=== PATIENT | female | born 1985 | race Caucasian/White ===

== ENCOUNTER 2019-10-08 06:00 | Inpatient (IN) | payer OTHER ==
[~2019-10-08 06:00] MED LIST: CITRIC ACID/SODIUM CITRATE 30 ML UNIT-DOSE CUP PO ONE; ELECTROLYTE-148 SOLN 500 ML IV ONE
[2019-10-08] MEDS ORDERED: ELECTROLYTE-148 SOLN 1,000 ML IV SCH (06:30)
[2019-10-08 06:43] VITALS: BMI 37.9
[2019-10-08] MEDS ORDERED: WITCH HAZEL 50% (TUCKS) 40 PAD/JAR PAD TP PRN (07:45)
[2019-10-08] MEDS ORDERED: METHYLERGONOVINE MALEATE 0.2 MG/1 ML AMP IM PRN (07:45)
--- NOTE | 2019-10-08 07:50 | HP ---
Past Medical History - Primary Care Physician PCP:: Sudha Godfrey - Admission History Source: Patient Limitations to Obtaining History: No Limitations - Past Medical History ...: 2 ...Para: 1 ...Term: 1 ...: 0 ...Spon : 0 ...Induced : 0 ...Multiple Gestation: 0 ...LMP: 02/01/19 ...EDC by Sono: 10/13/19 - Past Surgical History Past Surgical History: Yes: Hx Myomectomy: No Hx Transabdominal Cerclage: No - Smoking History Smoking history: Never smoked Have you smoked in the past 12 months: No - Alcohol/Substance Use Hx Alcohol Use: No History of Substance Use: reports: None - Social History Usual Living Arrangement: Yes: With Spouse Home Medications - Allergies Allergies/Adverse Reactions: Allergies Allergy/AdvReac Type Severity Reaction Status Date / Time No Known Allergies Allergy Verified 10/08/19 06:55 - Home Medications Home Medications: Ambulatory Orders Vitamins (Sjr) - 1 tab PO DAILY 10/08/19 Review of Systems - Review of Systems Constitutional: reports: No Symptoms Eyes: reports: No Symptoms HENT: reports: No Symptoms Neck: reports: No Symptoms Cardiovascular: reports: No Symptoms Respiratory: reports: No Symptoms Gastrointestinal: reports: No Symptoms Genitourinary: reports: No Symptoms Breasts: reports: No Symptoms Reported Musculoskeletal: reports: No Symptoms Integumentary: reports: No Symptoms Neurological: reports: No Symptoms Endocrine: reports: No Symptoms Hematology/Lymphatic: reports: No Symptoms Psychiatric: reports: No Symptoms Physical Exam - Maternity Vital Signs: Vital Signs Temperature 98.6 F 10/08/19 06:00 Pulse Rate 74 10/08/19 06:00 Respiratory Rate 20 10/08/19 06:00 Blood Pressure 117/73 10/08/19 06:00 O2 Sat by Pulse Oximetry (%) Constitutional: Yes: Well Nourished, No Distress, Obese - Abdominal Exam/OB Number of Fetuses: Single Presentation: Vertex Contractions: No Monitor Mode: External Category: I - Vaginal Exam/OB Vaginal Bleediing: No Speculum Exam: No Amniotic Membrane Status: Intact - Physical Exam Musculoskeletal: Yes: WNL Extremities: Yes: WNL Hemorrhage Risk Assessment - Risk Factors Risk Score: 1 Risk Level: Medium Risk Problem List - Problems (1) Previous delivery affecting , antepartum Code(s): O34.219 - MATERNAL CARE FOR UNSP TYPE SCAR FROM PREVIOUS DEL (2) 39 weeks gestation of Code(s): Z3A.39 - 39 WEEKS GESTATION OF (3) Obesity affecting in third trimester Code(s): O99.213 - OBESITY COMPLICATING , THIRD TRIMESTER Assessment/Plan previous section 39 week Cat1 obesity Plan reepat cearean section
[2019-10-08] MEDS ORDERED: ePHEDrine SULFATE 50 MG/1 ML AMPULE ONE (08:08)
[2019-10-08] MEDS ORDERED: morphine SULFATE/PF 0.5 MG/ML (2cc Syringe - QUVA) ONE (08:08)
[2019-10-08] MEDS ORDERED: ceFAZolin SODIUM 1 GM VIAL ONE (08:26)
[2019-10-08] MEDS ORDERED: ONDANSETRON 4 MG/2 ML VIAL IVPUSH PRN (09:39)
[2019-10-08] MEDS ORDERED: OXYTOCIN 20 UNITS in 0.9% NS 20 UNIT/1,000 ML INFUS.BAG IV ONE (10:33)
[2019-10-08] MEDS: OXYTOCIN 20 UNITS in 0.9% NS 20 UNIT/1,000 ML INFUS.BAG IV SCH (10:39)
--- NOTE | 2019-10-08 11:34 | OP ---
Operative Note - Note: Operative Date: 10/08/19 Pre-Operative Diagnosis: Previous section. obesity. IUP at 39 weeks Operation: Repeat Low transverse Section. Lysis of adhesions Findings: Live male Nuchal cord x 2 Post-Operative Diagnosis: Same as Pre-op Surgeon: Sudha Godfrey Underground Supervisor: Luis Hill Anesthesia: Spinal Estimated Blood Loss (mls): 600 Operative Report Dictated: Yes
[2019-10-08] MEDS: IBUPROFEN 800 MG/8 ML IJ IVPB PRN ×2 (11:56→20:53)
--- NOTE | 2019-10-08 14:09 | OP ---
DATE OF OPERATION: 10/08/2019 PREOPERATIVE DIAGNOSIS: Previous section, obesity in the 3rd trimester, and intrauterine at 39 weeks. OPERATION: Repeat low transverse section and lysis of adhesions. POSTOPERATIVE DIAGNOSIS: Previous section, obesity in the 3rd trimester, and intrauterine at 39 weeks, live male infant. Nuchal cord x2 as well as numerous omental and abdominal adhesions. SURGEON: Guanakito Godfrey MD RETURN CHECKER: GEORGIA Bowles. unavailable. ANESTHESIA: Spinal. DESCRIPTION OF PROCEDURE: Patient was taken to the operating room, placed in a supine position, prepped and draped in usual sterile fashion. Time-out was performed in accordance with hospital regulation. Pfannenstiel skin incision was made through the patient's previous scar. Cautery was then used to go through layers of abdominal wall to the level of the fascia. Fascia was cut in the midline. Cautery was then used to open the fascia in smiling fashion. Kochers were then used to bluntly, sharply dissect the rectus muscles off the fascia. Muscles split in the midline. Peritoneal cavity was then entered and carried upward and downward. Bladder retractor was then placed. Scalpel was then used to make a low transverse uterine incision. Incision was carried upward using bandage scissors. A live male was delivered in LOT position. Nuchal cord x2 was reduced. Shoulders were delivered without difficulty. Cord was clamped and cut. Cord blood obtained. Cord pH obtained. Infant was handed to the vice president of human resources. Placenta was spontaneously removed from the uterus. The uterus was noted to have numerous adhesions, omental adhesions, and was left in situ, and 1 Biosyn suture was used to close the uterus in a continuous, locking fashion and the 2nd layer imbricating the 1st layer. Hemostasis was achieved. Adhesions were noted, and Marina clamps were used to clamp the omental adhesions. Free ties were then used to cut the adhesions to have the uterus exteriorized, and other numerous adhesions on the right side were released and tied with free ties. Tubes and ovaries were noted to be normal. Uterus was then anteriorized. Abdominal cavity cleaned with clean lap pads. Peritoneum was then closed using 0 Biosyn suture in a continuous fashion. Fascia was then closed in 2 parts, 0 Vicryl suture in 2 parts continuous. Subcutaneous was approximated using 0 Biosyn suture, and skin was then closed using 3-0 Vicryl in subcuticular fashion. Wound was washed and dressed. Patient tolerated procedure well and was taken to recovery room in stable condition. GUANAKITO GODFREY M.D. [id number]
[2019-10-08] MEDS: SIMETHICONE 80 MG TAB.CHEW (FP) PO PRN (18:48)
[2019-10-08] MEDS: ACETAMINOPHEN 325 MG TABLET (FP) PO PRN (18:48)
[2019-10-09] MEDS: SIMETHICONE 80 MG TAB.CHEW (FP) PO PRN ×4 (05:07→22:48)
[2019-10-09] MEDS: IBUPROFEN 600 MG TABLET (FP) PO PRN ×4 (05:08→22:50)
[2019-10-09] MEDS: ACETAMINOPHEN 325 MG TABLET (FP) PO PRN ×4 (05:08→22:48)
[2019-10-09] MEDS ORDERED: oxyCODONE HCL 5 MG TABLET PO PRN (07:45)
[2019-10-09] MEDS ORDERED: BISACODYL 10 MG SUPP.RECT RC PRN (07:45)
[2019-10-09 07:55] LABS: BASO % 0.1 % (0-2.0); HEMATOCRIT 29.4 % (32.4-45.2); HEMOGLOBIN 9.8 GM/dL (10.7-15.3); MCHC 33.1 g/dl (32.0-36.0); MEAN CELL VOLUME 84.4 fl (80-96); MEAN PLT VOLUME 8.4 fl (7.5-11.1); MONO % 6.1 % (3.8-10.2); NEUT % 84.8 % (42.8-82.8); PLATELET COUNT 237 K/MM3 (134-434); RBC 3.49 M/mm3 (3.60-5.2); RDW 16.8 % (11.6-15.6); WHITE BLOOD COUNT 10.3 K/mm3 (4.0-10.0)
--- NOTE | 2019-10-09 09:06 | PN ---
Progress Note (SOAP) - Subjective Chief Complaint: Pt doing well no complaints - Current Medications Current Medications: Active Medications Acetaminophen (Tylenol -) 650 mg PO Q4H PRN PRN Reason: FEVER; IF CALDOR NOT WORK Last Admin: 10/09/19 05:08 Dose: 650 mg Bisacodyl (Dulcolax Suppository -) 10 mg RC PRN PRN PRN Reason: CONSTIPATION Diphenhydramine HCl (Benadryl Injection -) 25 mg IVPUSH Q4H PRN PRN Reason: Pruritis Diphtheria/Tetanus/Acell Pertussis (Boostrix -) 0.5 ml IM .ONCE ONE Stop: 10/09/19 10:01 Ferrous Sulfate (Feosol -) 325 mg PO BIDWM [facility] Parenteral Electrolytes (Plasma-Lyte 148 -) 1,000 mls @ 125 mls/hr IV ASDIR [facility] Oxytocin/Sodium Chloride (Normal Saline+20 Units Oxytocin -) 20 unit in 1,000 mls @ 125 mls/hr IV ASDIR [facility] Last Admin: 10/08/19 10:39 Dose: 125 mls/hr Ibuprofen (Caldolor Injection -) 800 mg IVPB Q8H PRN PRN Reason: FEVER Last Admin: 10/08/19 20:53 Dose: 800 mg Ibuprofen (Motrin -) 600 mg PO Q4H PRN PRN Reason: PAIN LEVEL 1 - 3 Last Admin: 10/09/19 05:08 Dose: 600 mg Methylergonovine Maleate (Methergine Injection -) 0.2 mg IM Q4H PRN PRN Reason: Excessive Bleeding (L&D) Ondansetron HCl (Zofran Injection) 4 mg IVPUSH Q4H PRN PRN Reason: NAUSEA Oxycodone HCl (Roxicodone -) 5 mg PO Q4H PRN PRN Reason: PAIN LEVEL 4 - 6 Oxycodone HCl (Roxicodone -) 10 mg PO Q4H PRN PRN Reason: PAIN LEVEL 7 - 10 Multivit/Folic Acid/Iron ( Vitamins (Sjr) -) 1 tab PO DAILY [facility] Simethicone (Mylicon -) 80 mg PO Q4H PRN PRN Reason: GAS Last Admin: 10/09/19 05:07 Dose: 80 mg Witch Viviane/Glycerin (Tucks Pads -) 1 pad TP PRN PRN PRN Reason: Pain - Topical - Objective Vital Signs: Vital Signs Temperature 98.7 F 10/09/19 08:45 Pulse Rate 91 H 10/09/19 08:45 Respiratory Rate 20 10/09/19 08:45 Blood Pressure 117/65 10/09/19 08:45 O2 Sat by Pulse Oximetry (%) 100 10/08/19 10:30 Constitutional: Yes: Well Nourished, No Distress Gastrointestinal: Yes: WNL, Soft, Abdomen, Obese ....Post : Yes: Uterus firm, Uterus non-tender Breast(s): Yes: WNL Musculoskeletal: Yes: WNL Extremities: Yes: WNL Labs Lab Results: CBCD WBC 10.3 K/mm3 (4.0-10.0) H 10/09/19 07:30 RBC 3.49 M/mm3 (3.60-5.2) L 10/09/19 07:30 Hgb 9.8 GM/dL (10.7-15.3) L 10/09/19 07:30 Hct 29.4 % (32.4-45.2) L 10/09/19 07:30 MCV 84.4 fl (80-96) 10/09/19 07:30 MCHC 33.1 g/dl (32.0-36.0) 10/09/19 07:30 RDW 16.8 % (11.6-15.6) H 10/09/19 07:30 Plt Count 237 K/MM3 (134-434) 10/09/19 07:30 MPV 8.4 fl (7.5-11.1) 10/09/19 07:30 Problem List - Problems (1) Previous delivery affecting , antepartum Code(s): O34.219 - MATERNAL CARE FOR UNSP TYPE SCAR FROM PREVIOUS DEL (2) 39 weeks gestation of Code(s): Z3A.39 - 39 WEEKS GESTATION OF (3) Obesity affecting in third trimester Code(s): O99.213 - OBESITY COMPLICATING , THIRD TRIMESTER Assessment/Plan previous section pod1 obesity Anemia Plan continue present managment Iron BID
--- NOTE | 2019-10-09 09:52 | PN ---
Progress Note (short form) - Note Progress Note: pOD #1 s/p repeat C/S under spinal anesthesia with intrathecal duramorph. Patient doing well, ambulating, denies n/v/pruritus. All questions answered.
[2019-10-09] MEDS ORDERED: DIPHTH,PERTUSS(ACELL),TET 0.5 ML DISP.SYRIN IM ONE (10:00)
[2019-10-09] MEDS: PRENATAL VITAMINS W/ FOLIC ACID TABLET (FP) PO SCH (10:29)
[2019-10-09] MEDS: FERROUS SO4 325 MG TABLET (FP) PO SCH (16:52)
[2019-10-09] MEDS: ELECTROLYTE-148 SOLN 1,000 ML IV SCH ×2 (22:05→22:06)
[2019-10-09] MEDS: OXYTOCIN 20 UNITS in 0.9% NS 20 UNIT/1,000 ML INFUS.BAG IV SCH (22:06)
[2019-10-10] MEDS: IBUPROFEN 600 MG TABLET (FP) PO PRN ×4 (03:45→17:25)
[2019-10-10] MEDS: SIMETHICONE 80 MG TAB.CHEW (FP) PO PRN ×5 (03:45→21:53)
[2019-10-10] MEDS: ACETAMINOPHEN 325 MG TABLET (FP) PO PRN ×5 (03:46→21:53)
--- NOTE | 2019-10-10 07:23 | PN ---
Progress Note (SOAP) - Current Medications Current Medications: Active Medications Acetaminophen (Tylenol -) 650 mg PO Q4H PRN PRN Reason: FEVER; IF CALDOR NOT WORK Last Admin: 10/10/19 07:15 Dose: 650 mg Bisacodyl (Dulcolax Suppository -) 10 mg RC PRN PRN PRN Reason: CONSTIPATION Ferrous Sulfate (Feosol -) 325 mg PO BIDWM [facility] Last Admin: 10/09/19 16:52 Dose: 325 mg Ibuprofen (Motrin -) 600 mg PO Q4H PRN PRN Reason: PAIN LEVEL 1 - 3 Last Admin: 10/10/19 07:14 Dose: 600 mg Methylergonovine Maleate (Methergine Injection -) 0.2 mg IM Q4H PRN PRN Reason: Excessive Bleeding (L&D) Oxycodone HCl (Roxicodone -) 5 mg PO Q4H PRN PRN Reason: PAIN LEVEL 4 - 6 Oxycodone HCl (Roxicodone -) 10 mg PO Q4H PRN PRN Reason: PAIN LEVEL 7 - 10 Multivit/Folic Acid/Iron ( Vitamins (Sjr) -) 1 tab PO DAILY [facility] Last Admin: 10/09/19 10:29 Dose: 1 tab Simethicone (Mylicon -) 80 mg PO Q4H PRN PRN Reason: GAS Last Admin: 10/10/19 07:14 Dose: 80 mg Witch Viviane/Glycerin (Tucks Pads -) 1 pad TP PRN PRN PRN Reason: Pain - Topical - Objective Vital Signs: Vital Signs Temperature 98.1 F 10/09/19 22:00 Pulse Rate 87 10/09/19 22:00 Respiratory Rate 18 10/09/19 22:00 Blood Pressure 108/66 10/09/19 22:00 O2 Sat by Pulse Oximetry (%) 100 10/08/19 10:30 Constitutional: Yes: Well Nourished, No Distress Gastrointestinal: Yes: WNL ....Post : Yes: Uterus firm, Uterus non-tender Breast(s): Yes: WNL Musculoskeletal: Yes: WNL Extremities: Yes: WNL Edema: No Wound/Incision: Yes: Clean/Dry, Well Approximated, Steri Strips Labs Lab Results: CBCD WBC 10.3 K/mm3 (4.0-10.0) H 10/09/19 07:30 RBC 3.49 M/mm3 (3.60-5.2) L 10/09/19 07:30 Hgb 9.8 GM/dL (10.7-15.3) L 10/09/19 07:30 Hct 29.4 % (32.4-45.2) L 10/09/19 07:30 MCV 84.4 fl (80-96) 10/09/19 07:30 MCHC 33.1 g/dl (32.0-36.0) 10/09/19 07: RDW 16.8 % (11.6-15.6) H 10/09/19 07:30 Plt Count 237 K/MM3 (134-434) 10/09/19 07:30 MPV 8.4 fl (7.5-11.1) 10/09/19 07:30 Problem List - Problems (1) Previous delivery affecting , antepartum Code(s): O34.219 - MATERNAL CARE FOR UNSP TYPE SCAR FROM PREVIOUS DEL (2) 39 weeks gestation of Code(s): Z3A.39 - 39 WEEKS GESTATION OF (3) Obesity affecting in third trimester Code(s): O99.213 - OBESITY COMPLICATING , THIRD TRIMESTER (4) Delivery by section Code(s): [id number] - Assessment/Plan previous section sp repeat CS pod 2 obesity Anemia Plan continue present managment Iron BID
[2019-10-10] MEDS: PRENATAL VITAMINS W/ FOLIC ACID TABLET (FP) PO SCH (09:34)
[2019-10-10] MEDS: FERROUS SO4 325 MG TABLET (FP) PO SCH ×2 (09:34→17:26)
[2019-10-10] MEDS: oxyCODONE HCL 5 MG TABLET PO PRN (21:53)
[2019-10-11] MEDS: SIMETHICONE 80 MG TAB.CHEW (FP) PO PRN (05:47)
[2019-10-11] MEDS: oxyCODONE HCL 5 MG TABLET PO PRN (05:48)
[2019-10-11] MEDS: ACETAMINOPHEN 325 MG TABLET (FP) PO PRN ×4 (05:48→21:49)
--- NOTE | 2019-10-11 08:04 | PN ---
Progress Note (SOAP) - Subjective Chief Complaint: Pt doing well no complaints - Current Medications Current Medications: Active Medications Acetaminophen (Tylenol -) 650 mg PO Q4H PRN PRN Reason: FEVER; IF CALDOR NOT WORK Last Admin: 10/11/19 05:48 Dose: 650 mg Bisacodyl (Dulcolax Suppository -) 10 mg RC PRN PRN PRN Reason: CONSTIPATION Ferrous Sulfate (Feosol -) 325 mg PO BIDWM [facility] Last Admin: 10/10/19 17:26 Dose: 325 mg Ibuprofen (Motrin -) 600 mg PO Q4H PRN PRN Reason: PAIN LEVEL 1 - 3 Last Admin: 10/10/19 17:25 Dose: 600 mg Methylergonovine Maleate (Methergine Injection -) 0.2 mg IM Q4H PRN PRN Reason: Excessive Bleeding (L&D) Oxycodone HCl (Roxicodone -) 5 mg PO Q4H PRN PRN Reason: PAIN LEVEL 4 - 6 Oxycodone HCl (Roxicodone -) 10 mg PO Q4H PRN PRN Reason: PAIN LEVEL 7 - 10 Last Admin: 10/11/19 05:48 Dose: 10 mg Multivit/Folic Acid/Iron ( Vitamins (Sjr) -) 1 tab PO DAILY [facility] Last Admin: 10/10/19 09:34 Dose: 1 tab Simethicone (Mylicon -) 80 mg PO Q4H PRN PRN Reason: GAS Last Admin: 10/11/19 05:47 Dose: 80 mg Witch Viviane/Glycerin (Tucks Pads -) 1 pad TP PRN PRN PRN Reason: Pain - Topical - Objective Vital Signs: Vital Signs Temperature 98.6 F 10/10/19 22:00 Pulse Rate 90 10/10/19 22:00 Respiratory Rate 18 10/10/19 22:00 Blood Pressure 102/53 L 10/10/19 22:00 O2 Sat by Pulse Oximetry (%) 100 10/08/19 10:30 Constitutional: Yes: Well Nourished, No Distress Gastrointestinal: Yes: WNL, Soft ....Post : Yes: Uterus firm, Uterus non-tender Edema: No Wound/Incision: Yes: Well Approximated, Steri Strips, Open to air Neurological: Yes: WNL, Alert, Oriented Labs Lab Results: CBCD WBC 10.3 K/mm3 (4.0-10.0) H 10/09/19 07:30 RBC 3.49 M/mm3 (3.60-5.2) L 10/09/19 07:30 Hgb 9.8 GM/dL (10.7-15.3) L 10/09/19 07:30 Hct 29.4 % (32.4-45.2) L 10/09/19 07:30 MCV 84.4 fl (80-96) 10/09/19 07:30 MCHC 33.1 g/dl (32.0-36.0) 10/09/19 07:30 RDW 16.8 % (11.6-15.6) H 10/09/19 07:30 Plt Count 237 K/MM3 (134-434) 10/09/19 07:30 MPV 8.4 fl (7.5-11.1) 10/09/19 07:30 Problem List - Problems (1) Previous delivery affecting , antepartum Code(s): O34.219 - MATERNAL CARE FOR UNSP TYPE SCAR FROM PREVIOUS DEL (2) 39 weeks gestation of Code(s): Z3A.39 - 39 WEEKS GESTATION OF (3) Obesity affecting in third trimester Code(s): O99.213 - OBESITY COMPLICATING , THIRD TRIMESTER Assessment/Plan POD 3 stable Plan continue present management DC home tomorrow
[2019-10-11 08:22] LABS: BASO % 0.1 % (0-2.0); HEMATOCRIT 26.7 % (32.4-45.2); HEMOGLOBIN 8.7 GM/dL (10.7-15.3); LYMPH % 20.5 % (8-40); MCH 27.7 pg (25.7-33.7); MCHC 32.7 g/dl (32.0-36.0); MEAN CELL VOLUME 84.7 fl (80-96); MEAN PLT VOLUME 8.2 fl (7.5-11.1); MONO % 7.4 % (3.8-10.2); PLATELET COUNT 265 K/MM3 (134-434); RBC 3.16 M/mm3 (3.60-5.2); RDW 17.4 % (11.6-15.6); WHITE BLOOD COUNT 8.2 K/mm3 (4.0-10.0)
[2019-10-11] MEDS: FERROUS SO4 325 MG TABLET (FP) PO SCH ×2 (09:34→17:21)
[2019-10-11] MEDS: PRENATAL VITAMINS W/ FOLIC ACID TABLET (FP) PO SCH (09:34)
[2019-10-11] MEDS: IBUPROFEN 600 MG TABLET (FP) PO PRN ×3 (11:39→21:49)
--- NOTE | 2019-10-11 16:22 | PATH ---
Surgical Pathology Report Patient Name: JOSE STAFFORD [facility]. Rec. #: [id number] /Age/Gender: 1985 (Age: 34) / F Account: [id number] Location: [facility] OBS/[facility] Taken: 10/08/2019 Received: 10/09/2019 Reported: 10/11/2019 Physicians: Sudha Godfrey M.D. Specimen(s) Received PLACENTA Clinical History at 39 weeks for repeat , advanced maternal age Final Diagnosis PLACENTA: THIRD TRIMESTER PLACENTA. TRIVASCULAR CORD. MEMBRANES WITH NO DIAGNOSTIC ABNORMALITIES. Electronically Signed Fahad Esparza M.D. Gross Description The specimen is received fresh labeled placenta and is a 358 gram, 17.5 x 13.5 x 2.5 cm. placenta with attached membranes and umbilical cord. The attached membranes are hua, thick, cloudy and insert marginally. The umbilical cord measures 10 cm. in length and averages 1.4 cm. in diameter. The cord inserts eccentrically, 5 cm. to the nearest margin. No true knots or strictures are identified. Cut surface of the umbilical cord reveals 3 vessels. The surface is holland-blue with minimal fibrin deposition and appropriate caliber vessels. The maternal surface is red-brown with focal defects. Sectioning reveals red-brown, spongy parenchyma. No lesions are identified. Hand Slitter sections are submitted in three cassettes as follows: 1- membrane rolls and umbilical cord; 2-3- full thickness sections of placenta. /10/10/2019 [facility]/10/10/2019
[2019-10-12] MEDS: FERROUS SO4 325 MG TABLET (FP) PO SCH (08:35)
--- NOTE | 2019-10-12 09:59 | DS ---
Physical Exam-HARBOR ENGINEER Vital Signs: Vital Signs Temperature 97.5 F L 10/11/19 22:00 Pulse Rate 67 10/11/19 22:00 Respiratory Rate 20 10/11/19 22:00 Blood Pressure 120/75 10/11/19 22:00 O2 Sat by Pulse Oximetry (%) 100 10/08/19 10:30 Constitutional: Yes: Well Nourished, No Distress Gastrointestinal: Yes: WNL, Soft ....Post : Yes: Uterus firm, Uterus non-tender Breast(s): Yes: WNL Edema: No Wound/Incision: Yes: Steri Strips, Open to air Psychiatric: Yes: WNL, Alert, Oriented Labs: CBC, BMP 10/11/19 07:20 Delivery - Delivery Section: Low Flap Transverse Type of Anesthesia: Spinal Episiotomy/Laceration: None EBL (cc): 600 Delivery, Single - Stages of Labor Date of Delivery: 10/08/19 Time of Delivery: 08:43 Time Placenta Delivered: 08:44 Placenta: Yes: Spontaneous - Condition of Infant Meat Carver/Research Biostatistician Present: Yes Name: Carla Jackson Gender: Male Weight: 7 lb 3 oz Position: Left, OT Total Hours ROM (Hrs/Mins): 2min - 1 Minute Total Score: 9 5 Minutes Total Score: 9 - Feeding Plan Initial Plan: Elected not to breastfeed exclusively throughout hospitalization Discharge Summary Problems reviewed: Yes Reason For Visit: C/SECTION Current Active Problems 39 weeks gestation of (Acute) Delivery by section (Acute) Obesity affecting in third trimester (Acute) Previous delivery affecting , antepartum (Acute) Procedures: Principal: Repeat Section Hospital Course: Unremarkable Condition: Good - Instructions Diet, Activity, Other Instructions: Physical activity Resume your normal everyday activity as tolerated no heavy lifting or exercise until seen by your surgeon. You may walk unlimited katina of and climb stairs. You may resume driving the car when you feel safe and comfortable behind the wheel. No sexual activity as instructed. Wound care If you have a bandage, leave it on, and keep dry for 48-72 hours. After that time discard the outer bandage. If they are tapes on the skin under the out of bandage leave them in place. They will peel off in the next 7 to 10 days. Do Not Peel them off. You may shower the day after surgery. If there are tapes present on the skin, you may shower over them. Diet There are no dietary restrictions. Eat healthy, high-fiber foods. Drink 6 to 8 glasses of liquid each day. This will assist in keeping your bowels are regular. Pain management You may take Tylenol or acetaminophen or Ibuprofen (for example, Motrin, Advil etc.) from my pain prescription medication is ordered should be taken as prescribed for moderate to severe pain. Call MD for any of the following: Severe pain not relieved by medication Fever of 101 or higher Excessive bleeding or drainage on dressing Inability to urinate Referrals: Sudha Godfrey MD [Staff Physician] - Disposition: HOME - Home Medications Comprehensive Discharge Medication List: Ambulatory Orders Ibuprofen [Motrin -] 600 mg PO QID #28 tablet 10/08/19 Vitamins (Sjr) - 1 tab PO DAILY 10/08/19
[2019-10-12 10:10] VITALS: BP 135/82; PULSE 75; TEMP 99.4
[2019-10-12] MEDS: ACETAMINOPHEN 325 MG TABLET (FP) PO PRN (10:18)
[2019-10-12] MEDS: IBUPROFEN 600 MG TABLET (FP) PO PRN (10:19)
[2019-10-12] MEDS: PRENATAL VITAMINS W/ FOLIC ACID TABLET (FP) PO SCH (10:20)
== END 2019-10-12 11:45 | disposition home or self-care (01) | DRG 540 ==
LOC: JLDR 06:00 → J3W 11:05
PROVIDERS: ADMIT Obstetrics & Gynecology; ATTEND Obstetrics & Gynecology
PROC: 10D00Z1 Extraction of Products of Conception, Low, Open Approach (ICD-10-PCS; principal; 2019-10-08)
DX: O34.219 Maternal care for unspecified type scar from previous cesarean delivery (principal); O99.213 Obesity complicating pregnancy, third trimester; Z3A.39 39 weeks gestation of pregnancy; Z37.0 Single live birth
CPT/HCPCS: 36415; 36600; 82803; 85025; 90715